=== PATIENT | female | born 1980 | race Caucasian/White ===

== ENCOUNTER 2019-07-07 11:12 | Emergency (ER) | payer OTHER ==
[2019-07-07 11:24] VITALS: BP 138/84; PULSE 100; RESP 18; TEMP 99.2
--- NOTE | 2019-07-07 11:39 | ED ---
General Adult HPI - General Chief complaint: ENT Stated complaint: Sore throat Time Seen by Provider: 07/07/19 11:25 Source: patient, family, RN notes reviewed, old records reviewed Mode of arrival: ambulatory Limitations: no limitations - History of Present Illness Initial comments: 39-year-old female patient with past medical history of tubal ligation presents to ED with chief complaint of sore throat, dry cough, generalized myalgias, and this has been ongoing for approximately 2 days. Patient has a child who recently completed treatment for strep throat. Patient denies any chest pain since breath, denies abdominal pain, nausea vomiting or diarrhea. Systemic: Pt denies fatigue, fever/chills, rash. Pt denies weakness, night sweats, weight loss. Neuro: Pt denies headache, visual disturbances, syncope or pre-syncope. HEENT: Pt denies ocular discharge or irritation, otalgia, rhinorrhea, or notable lymphadenopathy. Cardiopulmonary: Pt denies chest pain, SOB, heart palpitations, dyspnea on exertion. Abdominal/GI: Pt denies abdominal pain, n/v/d. : Pt denies dysuria, burning w/ urination, frequency/urgency. Denies new onset urinary or bowel incontinence. MSK: Pt denies myalgia, loss of strength or function in extremities. Neuro: Pt denies new onset weakness, paresthesias. - Related Data Home Medications Medication Instructions Recorded Confirmed Ibuprofen [Motrin Ib] 800 mg PO Q6H PRN 07/07/19 07/07/19 Allergies Allergy/AdvReac Type Severity Reaction Status Date / Time Penicillins Allergy Dyspnea Verified 07/07/19 11:28 Review of Systems ROS Statement: Those systems with pertinent positive or pertinent negative responses have been documented in the HPI. ROS Other: All systems not noted in ROS Statement are negative. Past Medical History Past Medical History: No Reported History History of Any Multi-Drug Resistant Organisms: None Reported Past Surgical History: Tubal Ligation Additional Past Surgical History / Comment(s): FOOT Past Psychological History: No Psychological Hx Reported Smoking Status: Current every day smoker Past Alcohol Use History: None Reported Past Drug Use History: None Reported General Exam - General Exam Comments Initial Comments: Constitutional: NAD, AOX3, Pt has pleasant affect. HEENT: NC/AT, trachea midline, neck supple, no lymphadenopathy. Posterior pharynx mildly erythematous, without exudates. External ears appear normal, without discharge. Mucous membranes moist. Eyes PERRLA, EOM intact. There is no scleral icterus. No pallor noted. Cardiopulmonary: RRR, no murmurs, rubs or gallops, no JVD noted. Lungs CTAB in anterior and posterior beltran. No peripheral edema. Abdominal exam: Abdomen soft and non-distended. Abdomen non-tender to palpation in all 4 quadrants. Bowel sounds active in LLQ. No hepatosplenomegaly. No ecchymosis Neuro: CN II-XII grossly intact. No nuchal rigidity. No raccon eyes, no huynh sign, no hemotympanum. No cervical spinal tenderness. MSK: No posterior calf tenderness bilaterally, homans sign negative bilaterally. Posterior tibialis and radial pulse +2 bilaterally. Sensation intact in upper and lower extremities. Full active ROM in upper and lower extremities, 5/5 stregnth. Limitations: no limitations Course Vital Signs 07/07/19 11:20 Temperature 99.2 F Pulse Rate 100 Respiratory 18 Rate Blood Pressure 138/84 O2 Sat by Pulse 98 Oximetry Medical Decision Making - Medical Decision Making 39-year-old female patient with past medical history of tubal ligation presents to ED with chief complaint of sore throat, dry cough, generalized myalgias, and this has been ongoing for approximately 2 days. Patient has a child who recently completed treatment for strep throat. Patient denies any chest pain since breath, denies abdominal pain, nausea vomiting or diarrhea. Patient vital signs stable, afebrile. Physical exam displayed no acute pathology. Chest x- ray displayed no acute process. Group A strep negative. Lipase likely exper iencing a viral syndrome, patient of discharge, follow up with primary care provider, return to your condition worsens. Case discussed with Dr. Pimentel. - Lab Data Lab Results 07/07/19 Range/Units 11:25 Group A Strep Rapid Negative (Negative) Disposition Clinical Impression: Viral syndrome Disposition: HOME SELF-CARE Condition: Stable Instructions (If sedation given, give patient instructions): Viral Syndrome (ED) Additional Instructions: Patient to adhere to previously discussed treatment plan and will take medication(s) as directed. Patient to follow up with PCP in 1-2 days. Patient to return to ED if symptoms do not improve. Follow-up with primary care provider tomorrow, return to ER if condition worsens. Is patient prescribed a controlled substance at d/c from ED?: No Referrals: Zenobia Dueñas MD [Primary Care Provider] - 1-2 days
--- NOTE | 2019-07-07 12:49 | XR ---
EXAMINATION TYPE: XR chest 2V DATE OF EXAM: 07/07/2019 COMPARISON: None INDICATION: Pain difficulty breathing TECHNIQUE: Frontal and lateral views of the chest are obtained. FINDINGS: The heart size is normal. The pulmonary vasculature is normal. The lungs are clear. IMPRESSION: 1. No acute pulmonary process.
== END 2019-07-07 13:10 | disposition home or self-care (01) ==
LOC: EC 11:12
DX: B34.9 Viral infection, unspecified (principal); F17.200 Nicotine dependence, unspecified, uncomplicated; Z98.51 Tubal ligation status; Z98.890 Other specified postprocedural states; Z88.0 Allergy status to penicillin
CPT/HCPCS: 71046; 87081; 87430; 99284

== ENCOUNTER 2019-10-18 17:03 | Emergency (ER) | payer OTHER ==
[2019-10-18 17:16] VITALS: RESP 18; TEMP 97.9
[2019-10-18] MEDS ORDERED: KETOROLAC 30 MG/ML 1 ML VIAL IM STA (17:44)
--- NOTE | 2019-10-18 17:48 | ED ---
Fall HPI - General Chief Complaint: Fall Stated Complaint: fall, back injury Time Seen by Provider: 10/18/19 17:20 Source: patient Mode of arrival: ambulatory - History of Present Illness Initial Comments: 39-year-old female patient presents to the emergency department today for evaluation of back pain and left ankle pain after experiencing a slip and fall accident yesterday. Patient states that she slipped on ice and fell down approximately 8 steps. Patient states that she landed on her back. She is reporting left upper back pain, left lower back pain, and left ankle pain. Patient states she did have significant swelling to left ankle yesterday which did seem to improve today. Patient states she did take Motrin and methadone for pain today which helped minimally. She denies hitting her head or losing consciousness during the fall. She denies any pain radiating down her legs. Denies any loss of bowel or bladder control, denies saddle anesthesia. Denies any neck pain. Patient denies any headache, chest pain, shortness of breath, dizziness, weakness, abdominal pain, nausea, vomiting, or difficulties with bowel movements or urination. - Related Data Home Medications Medication Instructions Recorded Confirmed Ibuprofen [Motrin Ib] 800 mg PO Q6H PRN 07/07/19 07/07/19 Previous Rx's Medication Instructions Recorded Ibuprofen [Motrin] 600 mg PO Q8HR PRN #30 tab 10/18/19 Allergies Allergy/AdvReac Type Severity Reaction Status Date / Time Penicillins Allergy Dyspnea Verified 10/18/19 17:12 Review of Systems ROS Statement: Those systems with pertinent positive or pertinent negative responses have been documented in the HPI. ROS Other: All systems not noted in ROS Statement are negative. Past Medical History Past Medical History: No Reported History History of Any Multi-Drug Resistant Organisms: None Reported Past Surgical History: Tubal Ligation Additional Past Surgical History / Comment(s): FOOT Past Psychological History: Anxiety Smoking Status: Current every day smoker Past Alcohol Use History: None Reported Past Drug Use History: None Reported General Exam Limitations: no limitations General appearance: alert, in no apparent distress, other (Physical well- developed, well-nourished adult female patient in no acute distress. Vital signs upon presentation are temperature 97.9F, pulse 86, respirations 18, blood pressure 127/85, pulse ox 100% on room air.) Eye exam: Present: normal appearance, PERRL, EOMI. Absent: scleral icterus, conjunctival injection, periorbital swelling ENT exam: Present: normal exam, normal oropharynx, mucous membranes moist Neck exam: Present: normal inspection, full ROM, other (Nontender, no step-off, no deformity to firm midline palpation of the posterior cervical spine. Full range of motion without pain or limitation.). Absent: tenderness, meningismus, lymphadenopathy Respiratory exam: Present: normal lung sounds bilaterally. Absent: respiratory distress, wheezes, rales, rhonchi, stridor Cardiovascular Exam: Present: regular rate, normal rhythm, normal heart sounds. Absent: systolic murmur, diastolic murmur, rubs, gallop, clicks GI/Abdominal exam: Present: soft, normal bowel sounds. Absent: distended, tenderness, guarding, rebound, rigid Extremities exam: Present: full ROM, normal capillary refill, other (There is soft tissue swelling surrounding the left ankle. Skin to the foot and ankle is pink, warm, dry. Cap refills less than 3 seconds. Pedal and posttibial pulses are 2+ and equal bilaterally.). Absent: tenderness, pedal edema, joint swelling, calf tenderness Back exam: Present: normal inspection, tenderness (Tenderness over the left lower buttock.), vertebral tenderness (Thoracic), other (No areas of ecchymosis.) Neurological exam: Present: alert, oriented X3, CN II-XII intact Psychiatric exam: Present: normal affect, normal mood Skin exam: Present: warm, dry, intact, normal color. Absent: rash Course Vital Signs 10/18/19 17:12 Temperature 97.9 F Pulse Rate 86 Respiratory 18 Rate Blood Pressure 127/85 O2 Sat by Pulse 100 Oximetry Medical Decision Making - Medical Decision Making 39-year-old female patient presented to the emergency department today for evaluation of left upper back, low back, and left ankle pain after experiencing a slip and fall down 8 steps yesterday. There is no head injury or loss of co nsciousness. She was neurologically intact with no focal deficits. X-rays of the left ankle, left ribs, thoracic spine, and pelvis were obtained and were negative for any evidence for fracture. We did discuss low back strain, left ankle sprain, and contusions as a cause for her symptoms. She is instructed to take Tylenol and Motrin for pain control, Motrin has been sent to her pharmacy. She was given a stirrup splint for the left ankle. She is educated regarding rest, ice, elevation. She is instructed to follow-up with her primary care physician for recheck in 1-2 days. Return parameters were discussed in detail. She verbalizes understanding and agrees with this plan. - Radiology Data Radiology results: report reviewed, image reviewed X-ray of the left ribs with chest were obtained. Report was reviewed in its entirety. Impression by Dr. Cosby shows no acute process. No acute displaced left foot fracture. AP view of the pelvis is obtained. Report was reviewed in its entirety. Impression by Dr. Cosby acute fracture dislocation the pelvis. 3 views of the thoracic spine are obtained. Report reviewed in its entirety. Impression by Dr. Cosby shows no acute fracture dislocation seen in the thoracic spine. 3 views of left ankle are obtained. Report was reviewed in its entirety. Impression by Dr. Cosby shows no acute fracture dislocation the left ankle. Disposition Clinical Impression: Back strain, Left ankle sprain, Contusion of lower back Disposition: HOME SELF-CARE Condition: Good Instructions (If sedation given, give patient instructions): Ankle Sprain (ED), Low Back Strain (ED), Contusion in Adults (ED) Additional Instructions: Apply ice to the painful areas. Continue Tylenol and Motrin for pain control. Follow-up through primary care physician for recheck in 1-2 days. Return to the emergency department immediately for any new, worsening, or concerning symptoms. Prescriptions: Ibuprofen [Motrin] 600 mg PO Q8HR PRN #30 tab PRN Reason: Pain Is patient prescribed a controlled substance at d/c from ED?: No Referrals: Zenobia Dueñas MD [Primary Care Provider] - 1-2 days Time of Disposition: 18:31
--- NOTE | 2019-10-18 18:07 | XR ---
EXAMINATION TYPE: XR ankle complete LT DATE OF EXAM: 10/18/2019 CLINICAL HISTORY: Left ankle pain after fall. TECHNIQUE: Frontal, lateral and oblique images of the left ankle are obtained. COMPARISON: None. FINDINGS: There is no acute fracture/dislocation evident in the left ankle. The ankle mortise appea rs within normal limits. The overlying soft tissue appears unremarkable. Partial visualization of po stsurgical change of the first metatarsal. IMPRESSION: There is no acute fracture or dislocation in the left ankle.
--- NOTE | 2019-10-18 18:08 | XR ---
EXAMINATION TYPE: XR thoracic spine complete DATE OF EXAM: 10/18/2019 CLINICAL HISTORY: Fall with mid back pain. TECHNIQUE: Frontal, lateral, and swimmer's view of thoracic spine are obtained. COMPARISON: None. FINDINGS: Dextroscoliosis and a long segment of the thoracolumbar spine is seen. Thoracic spine show satisfactory alignment without evidence of acute fracture or dislocation. Vertebral body heights and disc space heights are preserved. Visualized ribs are unremarkable. IMPRESSION: No acute fracture or dislocation is seen in the thoracic spine.
--- NOTE | 2019-10-18 18:09 | XR ---
EXAMINATION TYPE: XR pelvis AP view DATE OF EXAM: 10/18/2019 CLINICAL HISTORY: Pelvic pain after fall TECHNIQUE: A single AP view of the pelvis is obtained. COMPARISON: None. FINDINGS: There is no acute fracture/dislocation evident in the pelvis. The hip and sacroiliac join ts appear symmetric and unremarkable. The overlying soft tissue appears unremarkable. Phleboliths ar e seen within the pelvis. IMPRESSION: There is no acute fracture or dislocation in the pelvis.
--- NOTE | 2019-10-18 18:10 | XR ---
EXAMINATION TYPE: XR ribs LT w pa chest xray DATE OF EXAM: 10/18/2019 CLINICAL HISTORY: Chest and left rib pain after fall TECHNIQUE: Single frontal view of the chest is obtained. COMPARISON: 07/07/2019 FINDINGS: There is no focal air space opacity, pleural effusion, or pneumothorax seen. The cardiac silhouette size is within normal limits. The osseous structures are intact. No acute displaced left rib fractures seen. IMPRESSION: No acute process. No acute displaced left rib fracture.
[2019-10-18 18:42] VITALS: BP 124/82; PULSE 80
== END 2019-10-18 18:39 | disposition home or self-care (01) ==
LOC: EC 17:03
DX: S93.402A Sprain of unspecified ligament of left ankle, initial encounter (principal); S39.012A Strain of muscle, fascia and tendon of lower back, initial encounter; M54.6 Pain in thoracic spine; F17.200 Nicotine dependence, unspecified, uncomplicated; Z88.0 Allergy status to penicillin; W00.1XXA Fall from stairs and steps due to ice and snow, initial encounter
CPT/HCPCS: 71101; 72072; 72170; 73610; 99283; 29515; 96372; J1885

== ENCOUNTER 2020-10-16 17:56 | Emergency (ER) | payer OTHER ==
[2020-10-16 18:10] VITALS: RESP 18
[2020-10-16] MEDS ORDERED: KETOROLAC 15 MG/ML 1 ML VIAL IM STA (19:31)
--- NOTE | 2020-10-16 19:57 | XR ---
EXAMINATION TYPE: XR chest 1V DATE OF EXAM: 10/16/2020 COMPARISON: Prior chest x-ray 10/18/2019 HISTORY: Left shoulder pain and mass, numbness radiating down left arm TECHNIQUE: Single frontal view of the chest is obtained. FINDINGS: There is no focal air space opacity, pleural effusion, or pneumothorax seen. The cardiac silhouette size is within normal limits. The osseous structures are intact. IMPRESSION: No acute process.
--- NOTE | 2020-10-16 19:58 | XR ---
Left shoulder HISTORY: Pain and palpable mass, numbness radiating down left arm 3 views the left shoulder Bone mineralization, joint spaces and alignment are maintained. Left lung apex as visualized is lucille l. No fracture or dislocation. IMPRESSION: Normal left shoulder.
--- NOTE | 2020-10-16 20:05 | ED ---
General Adult HPI - General Chief complaint: Extremity Problem,Nontraumatic Stated complaint: painful lump on shoulder Time Seen by Provider: 10/16/20 18:45 Source: patient, RN notes reviewed Mode of arrival: ambulatory Limitations: no limitations - History of Present Illness Initial comments: 40-year-old female presents to the emergency room for a chief complaint of left shoulder pain. Patient states about a month ago it started to have pain on the left side of her neck. States is now on the top of her left shoulder. States sometimes she gets pins and needles in the back of her left arm. Patient states this worsens when she lifts her arm above her head. States that she noticed a lump to the back of her shoulder blade earlier today and became concerned. Patient denies any weakness of the arm. Denies any chest pain or shortness of breath. Denies any mid back pain. Pain is worse with movement and better when resting.Patient has no other complaints at this time including shortness of breath, chest pain, abdominal pain, nausea or vomiting, headache, or visual changes. - Related Data Home Medications Medication Instructions Recorded Confirmed Ibuprofen [Motrin Ib] 800 mg PO Q6H PRN 07/07/19 07/07/19 Previous Rx's Medication Instructions Recorded Ibuprofen [Motrin] 600 mg PO Q8HR PRN #30 tab 10/18/19 Allergies Allergy/AdvReac Type Severity Reaction Status Date / Time Penicillins Allergy Dyspnea Verified 10/16/20 18:10 Review of Systems ROS Statement: Those systems with pertinent positive or pertinent negative responses have been documented in the HPI. ROS Other: All systems not noted in ROS Statement are negative. Past Medical History Past Medical History: No Reported History History of Any Multi-Drug Resistant Organisms: None Reported Past Surgical History: Tubal Ligation Additional Past Surgical History / Comment(s): FOOT Past Psychological History: Anxiety Smoking Status: Current some day smoker Past Alcohol Use History: None Reported Past Drug Use History: None Reported General Exam Limitations: no limitations General appearance: alert, in no apparent distress Head exam: Present: atraumatic, normocephalic, normal inspection Eye exam: Present: normal appearance, PERRL, EOMI. Absent: scleral icterus, co njunctival injection, periorbital swelling ENT exam: Present: normal exam, mucous membranes moist Neck exam: Present: normal inspection, tenderness (Minimal left paraspinal cervical tenderness.). Absent: meningismus, lymphadenopathy Respiratory exam: Present: normal lung sounds bilaterally. Absent: respiratory distress, wheezes, rales, rhonchi, stridor Cardiovascular Exam: Present: regular rate, normal rhythm, normal heart sounds. Absent: systolic murmur, diastolic murmur, rubs, gallop, clicks GI/Abdominal exam: Present: soft, normal bowel sounds. Absent: distended, tenderness, guarding, rebound, rigid Extremities exam: Present: full ROM (Full range of motion of the left upper extremity. Patient does have increased tingling sensation with full flexion and abduction of the left arm. She also feels more pinching on the left shoulder b lade.), tenderness (Tenderness noted just medial to the scapula), normal capillary refill (Capillary refill less than 2 seconds, radial pulse 2+ left upper extremity.), other (Sensation intact left upper extremity.) Back exam: Present: paraspinal tenderness (Minimal tenderness just medial to the scapula. There are no nodules or masses. Skin exam is normal.). Absent: alex tebral tenderness (no thoracic spine tenderness) Neurological exam: Present: alert Course Vital Signs 10/16/20 18:07 Temperature 98.7 F Pulse Rate 86 Respiratory 18 Rate Blood Pressure 161/93 O2 Sat by Pulse 100 Oximetry Medical Decision Making - Medical Decision Making Patient presents with left shoulder pain with tingling down the back of the left arm intermittently for the past month. Worsened with movement. Minimal tenderness medial to the left scapula. Neurovascular status intact. Skin exam normal of the left arm and back. There is no mass or nodule of the left side of the back. X-ray of the left shoulder is negative. Chest x-ray shows no acute process. At this time patient was given Toradol and a follow-up to orthopedics. Likely cervical radiculopathy or nerve impingement. Recommend she return for any worsening symptoms. Disposition Clinical Impression: Arm pain, left Disposition: HOME SELF-CARE Condition: Good Instructions (If sedation given, give patient instructions): Cervical Radiculopathy (ED) Additional Instructions: Please take Motrin and Tylenol for pain. Make sure to eat something while taking the Motrin to prevent ulcerations. Please follow-up with your orthopedics or your primary care doctor in one to 2 days. Return to the emergency room if you have any worsening symptoms. Is patient prescribed a controlled substance at d/c from ED?: No Referrals: Zenobia Dueñas MD [Primary Care Provider] - 1-2 days Rashel Urban DO [Doctor of Osteopathic Medicine] - 1-2 days Time of Disposition: 20:04
[2020-10-16 20:18] VITALS: BP 119/68; PULSE 68; TEMP 98.1
== END 2020-10-16 20:17 | disposition home or self-care (01) ==
LOC: EC 17:56
DX: M25.512 Pain in left shoulder (principal); R20.2 Paresthesia of skin; F17.200 Nicotine dependence, unspecified, uncomplicated; Z88.0 Allergy status to penicillin
CPT/HCPCS: 73030; 71045; 99283; 96372; J1885

== ENCOUNTER 2021-11-11 12:18 | Emergency (ER) | payer OTHER ==
[2021-11-11 12:57] VITALS: BP 131/90; PULSE 110; RESP 18; TEMP 98.9
[2021-11-11 13:20] LABS: Appearance,Urine Cloudy (Clear); Bacteria,Urine Few /hpf; Bilirubin,Urine Negative (Negative); Blood,Urine Large (Negative); Color,Urine Yellow; Glucose,Urine (UA) Negative (Negative); Granular Casts,Urine 2 /lpf (0); Hyaline Casts,Urine 2 /lpf (0-2); Ketones,Urine Negative (Negative); Leukocyte Esterase,Urine Large (Negative); Mucus,Urine Moderate /hpf; Nitrite,Urine Positive (Negative); Protein,Urine 2+ (Negative); RBC,Urine 106 /hpf (0-5); Specific Gravity,Urine 1.026 (1.001-1.035); Squamous Epithelial Cell,Urine 11 /hpf (0-4); Urobilinogen,Urine <2.0 mg/dL (<2.0); WBC,Urine >182 /hpf (0-5)
--- NOTE | 2021-11-11 14:33 | ED ---
General Adult HPI - General Chief complaint: Abdominal Pain Stated complaint: kidney infection Time Seen by Provider: 11/11/21 14:18 Source: patient Mode of arrival: ambulatory Limitations: no limitations - History of Present Illness Initial comments: 41-year-old female patient presents to the emergency department today for urinary symptoms. She is concerned she may have a kidney infection. She is reporting right flank pain. States her urine has an odor and she's been having frequency and urgency. States she did have a kidney infection at the beginning of this year and she felt like this is how started. She denies any fever or chills. Denies nausea or vomiting. Denies chance of . - Related Data Home Medications Medication Instructions Recorded Confirmed Ibuprofen [Motrin Ib] 800 mg PO Q6H PRN 07/07/19 07/07/19 Previous Rx's Medication Instructions Recorded Ibuprofen [Motrin] 600 mg PO Q8HR PRN #30 tab 10/18/19 Ibuprofen [Motrin] 600 mg PO Q8HR PRN #20 tab 10/16/20 Cephalexin [Keflex] 500 mg PO Q6HR #40 cap 11/11/21 Allergies Allergy/AdvReac Type Severity Reaction Status Date / Time ciprofloxacin [From Cipro] Allergy Hallucinati Verified 11/11/21 12:57 ons Penicillins Allergy Dyspnea Verified 11/11/21 12:57 Review of Systems ROS Statement: Those systems with pertinent positive or pertinent negative responses have been documented in the HPI. ROS Other: All systems not noted in ROS Statement are negative. Past Medical History Past Medical History: No Reported History History of Any Multi-Drug Resistant Organisms: None Reported Past Surgical History: Tubal Ligation Additional Past Surgical History / Comment(s): FOOT Past Psychological History: Anxiety Smoking Status: Current some day smoker Past Alcohol Use History: None Reported Past Drug Use History: None Reported General Exam Limitations: no limitations General appearance: alert, in no apparent distress, other (This is a well- developed, well-nourished adult female in no acute distress.) ENT exam: Present: normal exam, normal oropharynx, mucous membranes moist Respiratory exam: Present: normal lung sounds bilaterally. Absent: respiratory distress, wheezes, rales, rhonchi, stridor Cardiovascular Exam: Present: regular rate, normal rhythm, normal heart sounds. Absent: systolic murmur, diastolic murmur, rubs, gallop, clicks GI/Abdominal exam: Present: soft, normal bowel sounds. Absent: distended, tenderness, guarding, rebound, rigid Back exam: Present: normal inspection, CVA tenderness (R). Absent: CVA tenderness (L) Neurological exam: Present: alert, oriented X3, CN II-XII intact Psychiatric exam: Present: normal affect, normal mood Skin exam: Present: warm, dry, intact, normal color. Absent: rash Course Vital Signs 11/11/21 12:54 Temperature 98.9 F Pulse Rate 110 H Respiratory 18 Rate Blood Pressure 131/90 O2 Sat by Pulse 99 Oximetry Medical Decision Making - Medical Decision Making 41-year-old female patient presents to the emergency department today for evaluation of right flank pain, urine odor, frequency, and urgency. Physical examination did reveal a CVA tenderness. She is afebrile normal vital signs other than mild tachycardia. Urinalysis did show obvious signs of infection including positive nitrite. This will be sent for culture. She'll be started on Keflex. She is tolerating oral intake and has no fever at this time so we will discharge to follow-up with her primary care physician for recheck in 1-2 days. Return parameters were discussed in detail. She verbalizes understanding and agrees with this plan. My attending is Dr. Garber. - Lab Data Lab Results 11/11/21 Range/Units 13:04 Urine Color Yellow Urine Appearance Cloudy H (Clear) Urine pH 6.0 (5.0-8.0) Ur Specific [place] 1.026 (1.001-1.035) Urine Protein 2+ H (Negative) Urine Glucose (UA) Negative (Negative) Urine Ketones Negative (Negative) Urine Blood Large H (Negative) Urine Nitrite Positive H (Negative) Urine Bilirubin Negative (Negative) Urine Urobilinogen <2.0 (<2.0) mg/dL Ur Leukocyte Esterase Large H (Negative) Urine RBC 106 H (0-5) /hpf Urine WBC >182 H (0-5) /hpf Urine WBC Clumps Moderate H (None) /hpf Ur Squamous Epith Cells 11 H (0-4) /hpf Urine Bacteria Few H (None) /hpf Hyaline Casts 2 (0-2) /lpf Granular Casts 2 (0) /lpf Urine Mucus Moderate H (None) /hpf Disposition Clinical Impression: UTI (urinary tract infection) Disposition: HOME SELF-CARE Condition: Good Instructions (If sedation given, give patient instructions): Urinary Tract Infection in Women (ED) Additional Instructions: Medications as directed. Follow-up with the primary care physician for recheck in 1-2 days. Return to the emergency department immediately for any new, worsening, or concerning symptoms Prescriptions: Cephalexin [Keflex] 500 mg PO Q6HR #40 cap Is patient prescribed a controlled substance at d/c from ED?: No Referrals: Zenobia Dueñas MD [Primary Care Provider] - 1-2 days Time of Disposition: 14:33
== END 2021-11-11 14:37 | disposition home or self-care (01) ==
LOC: EC 12:18
DX: N39.0 Urinary tract infection, site not specified (principal); F41.9 Anxiety disorder, unspecified; F17.200 Nicotine dependence, unspecified, uncomplicated; Z88.0 Allergy status to penicillin; Z88.1 Allergy status to other antibiotic agents; Z98.51 Tubal ligation status
CPT/HCPCS: 81001; 99284